=== PATIENT | female | born 1995 | race Two or more races ===

== ENCOUNTER 2017-04-10 22:35 | Emergency (ER) | payer SELFPAY ==
[~2017-04-10] VITALS: Ht 154.9 cm; Wt 52.6 kg
[2017-04-10 22:45] VITALS: BP 129/71
== END 2017-04-11 00:20 | disposition home or self-care (01) ==
LOC: ER 22:39
DX: M25.562 Pain in left knee (principal)
CPT/HCPCS: 73564; 99284; A4606; Z7610